=== PATIENT | male | born 1945 | race Caucasian/White ===

== ENCOUNTER → 2020-09-26 18:46 | Outpatient (ROUT) | payer OTHER, SELFPAY ==
[2020-09-26 19:32] LABS: Add Manual Diff / Slide Review NO; Basophils Absolute Auto 0 /uL (0-100); Basophils Percent Auto 0.7 % (0-2); Eosinophils Absolute Auto 100 /uL (0-450); Eosinophils Percent Auto 1.9 % (2-4); Lymphocytes Absolute Auto 1300 /uL (1100-4500); Mean Corpuscular HGB Conc 33.3 % (30-36); Mean Corpuscular Volume 93.1 fL (80-100); Monocytes Absolute Auto 500 /uL (0-900); Monocytes Percent Auto 10.7 % (3-14); Neutrophils Absolute Auto 2700 /uL (1500-7000); Neutrophils Percent Auto 58.7 % (50-75); Platelet Count 185 X10^3/uL (150-400); Red Blood Cell Count 4.83 X10^6/uL (4.5-5.9); Red Cell Distribution Width 13.8 % (11.6-14.8); White Blood Cell Count 4.6 X10^3/uL (4.5-11.0)
[2020-09-26 19:39] LABS: Alanine Aminotransferase 18 IU/L (<50); Albumin 3.7 g/dL (3.5-5.0); Albumin Globulin Ratio 1.4 (1.0-2.8); Alkaline Phosphatase 66 U/L (38-126); Aspartate Aminotransferase 23 IU/L (17-59); BUN Creatinine Ratio 19.3 (6-22); Bilirubin Total 0.6 mg/dL (0.2-1.3); Blood Urea Nitrogen 16 mg/dL (9-20); Calcium 9.4 mg/dL (8.4-10.2); Carbon Dioxide 26 mmol/L (22-32); Chloride 107 mmol/L (98-107); Cholesterol 249 mg/dL (140-199); Estimated Glomerular Filt Rate > 60.0 mL/min (>60); Globulin 2.7 g/dL (1.7-4.1); Glucose 98 mg/dL (80-110); HDL Cholesterol 61 mg/dL (40-60); LDL Cholesterol Calculated 169 mg/dL (<100); Potassium 4.5 mmol/L (3.4-5.1); Sodium 138 mmol/L (137-145); Total Protein 6.4 g/dL (6.3-8.2); Triglycerides 95 mg/dL (35-150)
[2020-09-29 10:50] LABS: HEMOLYSIS < 15 (0-50); Prostate Specific Antigen Scrn 1.43 ng/mL (0.1-4.0)
== END ==
PROVIDERS: Visit Provider Internal Medicine
DX: Z00.01 Encounter for general adult medical examination with abnormal findings (principal); J30.2 Other seasonal allergic rhinitis; K63.5 Polyp of colon; Z12.5 Encounter for screening for malignant neoplasm of prostate
CPT/HCPCS: 80053; 80061; 85025; G0103

== ENCOUNTER → 2020-12-15 09:57 | Outpatient (CLI) | payer OTHER, SELFPAY ==
[2020-12-15 11:50] LABS: COVID19 -Nasal RAPID Negative (Negative)
== END ==
PROVIDERS: PCP Physician Assistant; Visit Provider Physician Assistant
DX: Z01.812 Encounter for preprocedural laboratory examination (principal); Z20.822 Contact with and (suspected) exposure to COVID-19
CPT/HCPCS: 87635

== ENCOUNTER 2020-12-17 08:27 | Day surgery (SDC) | payer OTHER, SELFPAY ==
[2020-12-17 08:46] VITALS: BP 136/83; PULSE 88; RESP 18; TEMP 36.8; O2SAT 100; BMI 25.0
[2020-12-17] MEDS: SODIUM CHLORIDE 0.9% 1,000 ML 84 ML IV (08:57)
--- NOTE | 2020-12-17 09:12 | PM.HP.1 ---
History of Present Illness History of Present Illness Date Patient Seen: 12/17/20 Chief complaint: SDC Narrative: History of colon polyps Patient History Medical History (Updated 12/17/20 @ 08:39 by Donald Wilson RN) Bilateral tinnitus Hearing loss Histoplasmosis Family & Social History Social History: household members spouse Tobacco & Substance use: Smoking Status Never smoker alcohol intake current alcohol intake frequency 0-2 drinks per day Substance Use Type does not use Meds Home Medications and Allergies Home Medications Medication Instructions Recorded Confirmed Type cetirizine 10 mg tablet (Zyrtec) 10 mg PO BEDTIME 12/17/20 12/17/20 History fluticasone propionate 50 2 spray INTRANASAL BEDTIME 12/17/20 12/17/20 History mcg/actuation nasal spray,suspension Allergies Allergy/AdvReac Type Severity Reaction Status Date / Time tree and shrub pollen Allergy Nasal Verified 12/17/20 08:42 Discharge weed pollen Allergy Nasal Verified 12/17/20 08:42 Discharge Exam Vital Signs (past 8 hours): - 12/17/20 08:46 Temperature 98.2 F Pulse Rate 88 Respiratory Rate 18 Blood Pressure 136/83 Pulse Oximetry 100 Oxygen Delivery Method Room Air Oxygen Flow Rate 0 Narrative Exam Narrative: Oropharynx free of lesions Chest clear to auscultation percussion Cardiac exam reveals no S3 or murmur Assessment & Plan Assessment & Plan narrative: History of colon polyps need for follow-up colonoscopy. Risks, benefits, alternatives have been explained.
--- NOTE | 2020-12-17 09:14 | PM.OP.ENDO ---
Operative Date/Time/Diagnoses Date of procedure: 12/17/20 Pre-op diagnosis: See indication and findings Procedure & Clinicians Study performed: Colonoscopy Indications: History of polyps Surgeon: Meliton Sidhu Procedure Notes Procedure in detail: After informed consent was obtained the patient was placed in the left lateral decubitus position. The video colonoscope was introduced the rectum slowly advanced to cecum. Preparation was good. On slow withdrawal mucosa was carefully examined. The scope was removed. The patient tolerated procedure however had a some bradycardia requiring a 0.5 mg of atropine. Blood loss none Complications none Sedation Total sedation time 31 minutes Versed 6 mg fentanyl 100 micro g IV titration Findings 1. Moderate sigmoid diverticulosis 2. 5 mm polyp in the sigmoid colon cold snared and removed completely 3. Otherwise negative colonoscopy to cecum. Patient should have follow-up colonoscopy and 5 years
[2020-12-17] MEDS: fentaNYL 250 MCG/5 ML INJ IV (09:52)
[2020-12-17] MEDS: MIDAZOLAM 5 MG/5 ML VIAL IV (10:05)
[2020-12-17] MEDS: ATROPINE 1 MG/10 ML SYRINGE 0.5 MG IV (10:07)
[2020-12-17 10:27] VITALS: BP 110/49; PULSE 74; RESP 14; TEMP 36.3; O2SAT 95
[2020-12-17 10:32] VITALS: BP 118/80; PULSE 74; RESP 16; O2SAT 95
[2020-12-17 10:36] VITALS: BP 115/80; PULSE 72; RESP 16; O2SAT 94
[2020-12-17 10:43] VITALS: BP 123/84; PULSE 68; RESP 16; TEMP 36.4; O2SAT 98
[2020-12-17 10:51] VITALS: BP 120/70; PULSE 68; RESP 16; TEMP 36.6; O2SAT 98
== END 2020-12-17 10:54 | disposition home or self-care (01) ==
LOC: ENDO 08:29
PROVIDERS: PCP Internal Medicine; Referring Provider Internal Medicine Gastroenterology; Visit Provider Internal Medicine Gastroenterology
PROC: 0DJD8ZZ Inspection of Lower Intestinal Tract, Via Natural or Artificial Opening Endoscopic (ICD-10-PCS; CPT 45378; principal; 2020-12-17 09:30)
DX: Z12.11 Encounter for screening for malignant neoplasm of colon (principal); Z86.010 Personal history of colon polyps; K57.30 Diverticulosis of large intestine without perforation or abscess without bleeding; R00.1 Bradycardia, unspecified; K63.5 Polyp of colon
CPT/HCPCS: 45385; J0461; J2250; J3010

== ENCOUNTER 2023-03-25 14:53 | Observation (INO) | payer OTHER, SELFPAY ==
[2023-03-25 15:36] VITALS: BP 183/99; PULSE 85; RESP 18; TEMP 36.7; O2SAT 98; BMI 25.0
--- NOTE | 2023-03-25 15:42 | DI.RAD.S_ITS ---
PROCEDURE: XR ACUTE ABDOMEN SERIES INDICATIONS: foreign object lost in rectum TECHNIQUE: One view chest and two views of the abdomen were acquired. COMPARISON: None. FINDINGS: Surgical changes and devices: None. Chest: Lungs are abnormal with multiple small rounded sharply demarcated presumed calcified granulomas. Heart size is normal. No pleural effusions. No pneumoperitoneum. Abdomen: Bowel gas pattern is normal. No suspicious calcifications. Visualized solid organ contours appear normal. Note is made to the right of midline just above the medial aspect of the superior obturator ring of a radiodensity that is somewhat angular, and measures approximately 1.8 x 1.3 cm, chronicity is uncertain, and by appearance it does not represent a definite intraluminal structure. Bones: No suspicious bony lesions. IMPRESSION: Radiodensity to the right of expected position of the rectum discussed above, measuring 1.8 x 1.3 cm, not clearly intraluminal. Old calcified small granulomas within the lung parenchyma extensively. Dictated by: Robert Bettencourt M.D. on 03/25/2023 at 16:25 Approved by: Robert Bettencourt M.D. on 03/25/2023 at 16:28
--- NOTE | 2023-03-25 16:50 | PM.CN ---
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 Amish was inserted yesterday he lost hold of it has diarrhea and inability to retrieve it. No prior abdominal surgery Meds Home Medications and Allergies Home Medications Medication Instructions Recorded Confirmed Type cetirizine 10 mg tablet (Zyrtec) 10 mg PO BEDTIME 12/17/20 12/17/20 History fluticasone propionate 50 2 spray intranasal BEDTIME 12/17/20 12/17/20 History mcg/actuation nasal spray,suspension Allergies Allergy/AdvReac Type Severity Reaction Status Date / Time tree and shrub pollen Allergy Nasal Verified 03/25/23 15:36 Discharge weed pollen Allergy Nasal Verified 03/25/23 15:36 Discharge Exam Vital Signs (past 8 hours): - 03/25/23 15:36 Temperature 98.0 F Pulse Rate 85 Respiratory Rate 18 Blood Pressure 183/99 H Pulse Oximetry 98 Oxygen Delivery Method Room Air Oxygen Delivery Method Room Air Narrative Exam Narrative: GENERAL: A well nourished, well developed adult, resting comfortably, in no acute distress. HEENT: Normocephalic, atraumatic. No scleral icterus CHEST: Rising symmetrically. No audible wheezes CARDIOVASCULAR: Warm and well perfused. Regular rate ABDOMEN: Soft, non-tender, non-distended Rectum digital exam foreign body is palpable at the tip of my finger but unable to grasp it. EXTREMITIES: Normal tone and without edema. NEUROLOGIC: Moving all extremities spontaneously. No gross motor deficits. [facility] Medical History Hearing loss Bilateral tinnitus Histoplasmosis Social History household members: spouse Tobacco & Substance Use Smoking Status: Never smoker alcohol intake: current Assessment & Plan Assessment and plan (1) Rectal foreign body: Qualifiers: Encounter type: initial encounter Qualified Code(s): T18.5XXA - Foreign body in anus and rectum, initial encounter Status: Acute Assessment & Plan narrative: 77-year-old man with a foreign body/sex toy retained in rectum. No peritonitis or leukocytosis. Abdominal x-ray reviewed demonstrates a rectal foreign body. Palpable at the tip of my finger but unable to grasp. Discussed my recommendation with him that we proceed to the endoscopy room for therapeutic colonoscopy with retrieval the foreign body. Overview of the procedure was discussed. Procedural risks including hemorrhage, inability to retrieve object and rectal injury were discussed. Questions have been answered he is in agreement with this plan.
--- NOTE | 2023-03-25 16:55 | ED_ITS ---
HPI - Abdominal Pain General Chief Complaint: Skin/Abscess/Foreign Body Stated Complaint: STATES HAS DIVERTICULITIS COMPLICATIONS Time Seen by Provider: 03/25/23 16:33 Source: patient Mode of arrival: Ambulatory History of Present Illness HPI narrative: Patient 77-year-old male without significant past medical history presenting today with rectal foreign body. He reports that he thought he was constipated just for 1 day. He did not take any ezwo-dpc-jqhuwip medications to help with his constipation. He used a lubricated 6 toys and now can not get it out. No nausea or vomiting. No fever Related Data Home Medications Medication Instructions Recorded Confirmed cetirizine 10 mg tablet (Zyrtec) 10 mg PO BEDTIME 12/17/20 12/17/20 fluticasone propionate 50 2 spray intranasal BEDTIME 12/17/20 12/17/20 mcg/actuation nasal spray,suspension Previous Rx's Medication Instructions Recorded docusate sodium 100 mg capsule 100 mg PO BID #30 caps 03/25/23 (Colace) Allergies Allergy/AdvReac Type Severity Reaction Status Date / Time tree and shrub pollen Allergy Nasal Verified 03/25/23 15:36 Discharge weed pollen Allergy Nasal Verified 03/25/23 15:36 Discharge Patient History Medical History Hearing loss Bilateral tinnitus Histoplasmosis Social History household members: spouse Smoking Status: Never smoker alcohol intake: current Smoking Status: Never smoker alcohol intake frequency: 0-2 drinks per day Substance Use Type: does not use Exam Initial Vital Signs Initial Vital Signs: Vital Signs Temperature 98.0 F 03/25/23 15:36 Pulse Rate 85 03/25/23 15:36 Respiratory Rate 18 03/25/23 15:36 Blood Pressure 183/99 H 03/25/23 15:36 Pulse Oximetry 98 03/25/23 15:36 Oxygen Delivery Method Room Air 03/25/23 15:36 GENERAL: Alert pleasant 77-year-old male and in no acute distress. HEENT: Head atraumatic,EOMI, pupils reactive, face symmetric, moist mucous membranes CARDIOVASCULAR: Regular rate and rhythm without murmurs, rubs or gallops. RESPIRATORY: Breath sounds equal bilaterally, no wheezes rales or rhonchi. ABDOMEN: Soft, nontender. Normoactive bowel sounds all 4 quadrants. No guarding or rebound. EXTREMITIES: Normal range of motion, no clubbing or edema. Neurovascularly intact NEUROLOGICAL: Alert and oriented x4.Normal gait and speech. SKIN: Warm, dry, no laceration, no petechiae, no rashes or lesions. Course Orders Ordered: ED Orders 03/25/23 15:42 XR acute abdomen series Stat 03/25/23 17:03 CBC Auto Diff [Complete Blood Count AUTO DIFF] Stat CMP [Comprehensive Metabolic Panel] Stat Discontinued Medications Lactated Ringer's (Lactated Ringers) 1,000 mls @ 42 mls/hr IV CONT YOKASTA Last Admin: 03/25/23 17:53 Dose: 42 mls/hr Documented By: CG Vital Signs Vital signs: Vital Signs - 8 hr 03/25/23 15:36 Temperature 98.0 F Pulse Rate 85 Respiratory Rate 18 Blood Pressure 183/99 H Pulse Oximetry 98 Oxygen Delivery Method Room Air MDM - Abdominal Pain Lab Data 03/25/23 17:03 03/25/23 17:03 Labs: Lab Results 03/25/23 Range/Units 17:03 WBC 6.1 (4.5-11.0) X10^3/uL RBC 4.80 (4.5-5.9) X10^6/uL Hgb 14.7 (13.5-17.5) g/dL Hct 44.1 (41-53) % MCV 92.0 (80-100) fL MCH 30.6 (26-34) PG MCHC 33.3 (30-36) % RDW 14.0 (11.6-14.8) % Plt Count 209 (150-400) X10^3/uL Neut % (Auto) 73.7 (50-75) % Lymph % (Auto) 17.2 L (25-40) % [place] % (Auto) 8.2 (3-14) % Eos % (Auto) 0.5 L (2-4) % Baso % (Auto) 0.4 (0-2) % Neut # (Auto) 4500 (6270-7413) /uL Lymph # (Auto) 1000 L (3681-5225) /uL [place] # (Auto) 500 (0-900) /uL Eos # (Auto) 0 (0-450) /uL Baso # (Auto) 0 (0-100) /uL Sodium 138 (137-145) mmol/L Potassium 4.1 (3.4-5.1) mmol/L Chloride 104 (98-107) mmol/L Carbon Dioxide 26 (22-32) mmol/L BUN 11 (9-20) mg/dL Creatinine 0.78 (0.66-1.25) mg/dL Estimated GFR > 60 (>60) mL/min BUN/Creatinine Ratio 14.1 (6-22) Glucose 105 (80-110) mg/dL Calcium 9.4 (8.4-10.2) mg/dL Total Bilirubin 0.4 (0.2-1.3) mg/dL AST 24 (17-59) IU/L ALT 20 (<50) IU/L Alkaline Phosphatase 65 (38-126) U/L Total Protein 7.4 (6.3-8.2) g/dL Albumin 4.5 (3.5-5.0) g/dL Globulin 2.9 (1.7-4.1) g/dL Albumin/Globulin Ratio 1.6 (1.0-2.8) Imaging Data Abdominal x-ray: Radiologist's Impression: PROCEDURE: XR ACUTE ABDOMEN SERIES INDICATIONS: foreign object lost in rectum TECHNIQUE: One view chest and two views of the abdomen were acquired. COMPARISON: None. FINDINGS: Surgical changes and devices: None. Chest: Lungs are abnormal with multiple small rounded sharply demarcated presumed calcified granulomas. Heart size is normal. No pleural effusions. No pneumoperitoneum. Abdomen: Bowel gas pattern is normal. No suspicious calcifications. Visualized solid organ contours appear normal. Note is made to the right of midline just above the medial aspect of the superior obturator ring of a radiodensity that is somewhat angular, and measures approximately 1.8 x 1.3 cm, chronicity is uncertain, and by appearance it does not represent a definite intraluminal structure. Bones: No suspicious bony lesions. IMPRESSION: Radiodensity to the right of expected position of the rectum discussed above, measuring 1.8 x 1.3 cm, not clearly intraluminal. Old calcified small granulomas within the lung parenchyma extensively. Dictated by: Robert Bettencourt M.D. on 03/25/2023 at 16:25 Approved by: Robert Bettencourt M.D. on 03/25/2023 at 1 MDM Narrative Medical decision making narrative: Patient found have to foreign body on x-ray. Abdomen is soft. Dr. Bledsoe in ED at bedside unable to manually remove object in ED. Patient will go to OR. I did discuss with Dr. Bledsoe CT and results after foreign object was not found with colonoscopy. Ultimately no foreign body was found on CT or colonoscopy. Patient discharged from PACU Discharge Plan Departure Patient Disposition: Admitted As Inpatient Admit Date/Time: 03/25/23 17:36 Admit Provider: Tor Bledsoe
[2023-03-25 17:15] LABS: Add Manual Diff / Slide Review NO; Basophils Absolute Auto 0 /uL (0-100); Basophils Percent Auto 0.4 % (0-2); Eosinophils Absolute Auto 0 /uL (0-450); Eosinophils Percent Auto 0.5 % (2-4); Hematocrit 44.1 % (41-53); Hemoglobin 14.7 g/dL (13.5-17.5); Lymphocytes Absolute Auto 1000 /uL (1100-4500); Lymphocytes Percent Auto 17.2 % (25-40); Mean Corpuscular HGB Conc 33.3 % (30-36); Mean Corpuscular Hemoglobin 30.6 PG (26-34); Monocytes Absolute Auto 500 /uL (0-900); Monocytes Percent Auto 8.2 % (3-14); Neutrophils Absolute Auto 4500 /uL (1500-7000); Neutrophils Percent Auto 73.7 % (50-75); Platelet Count 209 X10^3/uL (150-400); White Blood Cell Count 6.1 X10^3/uL (4.5-11.0)
[2023-03-25 17:31] LABS: Alanine Aminotransferase 20 IU/L (<50); Albumin 4.5 g/dL (3.5-5.0); Albumin Globulin Ratio 1.6 (1.0-2.8); Alkaline Phosphatase 65 U/L (38-126); Aspartate Aminotransferase 24 IU/L (17-59); BUN Creatinine Ratio 14.1 (6-22); Bilirubin Total 0.4 mg/dL (0.2-1.3); Blood Urea Nitrogen 11 mg/dL (9-20); Calcium 9.4 mg/dL (8.4-10.2); Carbon Dioxide 26 mmol/L (22-32); Chloride 104 mmol/L (98-107); Estimated Glomerular Filt Rate > 60 mL/min (>60); Globulin 2.9 g/dL (1.7-4.1); Glucose 105 mg/dL (80-110); HEMOLYSIS < 15 (0-50); Potassium 4.1 mmol/L (3.4-5.1); Sodium 138 mmol/L (137-145); Total Protein 7.4 g/dL (6.3-8.2)
[2023-03-25 17:50] VITALS: BP 149/81; PULSE 73; RESP 20; TEMP 37.2; O2SAT 99; BMI 25.0
[2023-03-25] MEDS: LACTATED RINGERS 1,000 ML 42 ML IV (17:53)
--- NOTE | 2023-03-25 18:29 | DI.CT.S_ITS ---
PROCEDURE: CT ABDOMEN PELVIS W CON INDICATIONS: R/O rectal foreign body TECHNIQUE: After the administration of oral and IV contrast, axial sections were acquired from the lung bases to the pubic symphysis. Coronal and sagittal reformats were performed. For radiation dose reduction, the following was used: automated exposure control, adjustment of mA and/or kV according to patient size. COMPARISON: None. FINDINGS: Image quality: Excellent. Lung bases: Innumerable small round pulmonary parenchymal calcifications bilaterally. Right infrahilar calcification. Heart: No significant findings. ABDOMEN: Liver: No masses Gallbladder: Normal wall thickness. Biliary ducts: Nondilated. Pancreas: Normal. Spleen: Normal size. Adrenal Glands: No nodules. Kidneys and Ureters: Normal enhancement. No hydronephrosis or hydroureter. No calcifications. Stomach and Bowel: No rectal foreign body visible. No evidence of extraluminal gas. Occasional sigmoid diverticula. Colon is otherwise decompressed. Normal appendix. Normal small bowel loops and stomach. Peritoneum: No abnormal intraperitoneal fluid. No free air. Ventral Wall: No hernia. Abdominal Nodes: No retroperitoneal or mesenteric adenopathy by size criteria. Vessels: Mild abdominal aortic atherosclerotic calcification. PELVIS: Pelvic Organs: Mildly enlarged prostate gland with a few calcifications present. There are several vascular calcifications. Bladder: Unremarkable. Pelvic Nodes: No enlarged lymph nodes. Miscellaneous: No inguinal hernias are seen. Bones: Degenerative disc and endplate change in the lumbar spine causing mild scoliosis. IMPRESSION: 1. No CT evidence of rectal or intrapelvic foreign body. 2. Findings discussed with Dr. Sidhu in the emergency room at 17:05 hours. Dictated by: Deedee Raya M.D. on 03/25/2023 at 19:01 Approved by: Deedee Raya M.D. on 03/25/2023 at 19:08
[2023-03-25 18:37] VITALS: BP 120/66; PULSE 68; RESP 16; O2SAT 98
--- NOTE | 2023-03-25 18:41 | PM.OP.COLON ---
Operative Date/Time/Diagnoses Date of procedure: 03/25/23 Time of procedure: 18:41 Pre-op diagnosis: Rectal foreign body Post-op diagnosis: same Procedure & Clinicians Study performed: Sigmoidoscopy Same procedure as scheduled: Yes Indications: 77-year-old man with retained sex toy in rectum here for endoscopic removal Surgeon: Tor Bledsoe Procedure Notes Procedure in detail: Anesthesia was induced. Time out performed. Colonoscopy was inserted into the rectum and advanced forward. There was firm stool in the rectum but no foreign body present up to 30 cm from the verge. Following this negative sigmoidoscopy he was taken for CT A/P which on my read shows no evidence of rectal foreign body. Specimen(s): none sent Impression: No evidence of rectal foreign body Post-procedure Plan for aftercare: Consider an alternative method for treatment of constipation
[2023-03-25 18:52] VITALS: BP 143/73; PULSE 65; RESP 12; O2SAT 97
--- NOTE | 2023-03-25 18:52 | SUR.PHASEI ---
1820: to CT scan via stretcher with PACU nurse for CT scan of abdomen since no object was found during colonoscopy.
== END 2023-03-25 19:06 | disposition home or self-care (01) ==
LOC: ED 17:19 → AC 17:36
PROVIDERS: Admitting Provider Surgery; Emergency Provider Emergency Medicine; PCP Internal Medicine; Visit Provider Surgery
PROC: (CPT 45990; principal; 2023-03-25 17:45)
DX: K59.00 Constipation, unspecified (principal)
CPT/HCPCS: 45330; 36415; 74022; 74177; 80053; 85025; 99283; 99284; G0378; J2704

== ENCOUNTER → 2024-12-05 08:15 | Outpatient (CLI) | payer OTHER, SELFPAY ==
--- NOTE | 2024-12-05 08:18 | DI.MRI.S_ITS ---
PROCEDURE: MR ANKLE RT WO/W CON INDICATIONS: Ganglion TECHNIQUE: Noncontrast sagittal T1 spin echo and T2 fast spin echo with fat saturation, axial proton density fast spin echo and T2 fast spin echo with fat saturation, axial T1 spin echo with fat saturation, coronal T1 spin echo and T2 fast spin echo with fat saturation through the ankle/hindfoot. Post-contrast axial, coronal, and sagittal T1 spin echo with fat saturation through the ankle/hindfoot. COMPARISON: None. FINDINGS: Image quality: Excellent. Bones and joints: No suspicious osseous enhancement. Somu-ba-zfzamtwk midfoot and hindfoot joint osteoarthritis. No bone marrow contusions or fractures. No hindfoot coalitions. No osteochondral injuries of the talar dome. No pathologic joint effusions. Medial structures: The posterior tibialis tendon is mildly thickened at the level of distal talus and talonavicular joint. The flexor digitorum longus, and flexor hallucis longus tendons are intact. The posterior tibial neurovascular bundle appears normal within the tarsal tunnel, without extrinsic mass effect. The deltoid ligament and spring ligament are intact. Lateral structures: There is a lobulated fairly homogeneously T2 hyperintense and T1 hypointense signal structure involving anterolateral aspect of midfoot subcutaneous soft tissue at the level of 3rd TMT joint and measures up to 2.1 x 2.2 x 1 cm in size series 5, image 27 and series 9, image 3. After IV contrast infusion, no enhancement is noted within this structure. The anterior talofibular, calcaneofibular, and posterior talofibular ligaments appear intact. More superiorly, the anterior and posterior tibiofibular ligaments appear intact, as is the intermalleolar ligament. The tibiofibular syndesmosis is normal in width at 2 mm or less. The peroneus longus and brevis tendons demonstrate normal location and morphology. The sinus tarsi demonstrates normal fatty signal, without edema, fibrosis, or cyst formation. Anterior structures: The tibialis anterior, extensor hallucis longus, and extensor digitorum longus tendons appear intact. The dorsal talonavicular ligament appears intact. Posterior and plantar structures: Achilles tendon is intact. Medial and lateral bands of the plantar fascia are of normal thickness. No abductor digiti quinti muscle atrophy to suggest Harp neuropathy. IMPRESSION: 1. Finding likely represent a 2.1 x 1 x 2.2 cm lobulated ganglion cyst in subcutaneous soft tissue over anterolateral aspect of midfoot soft tissue at the level of 3rd TMT joint. No enhancing soft tissue mass is seen. No other cystic structures are noted. 2. Txtd-re-oiwhergm midfoot and hindfoot joint osteoarthritis. No fracture or dislocation. No osteochondral injuries of talar dome. 3. Mild distal posterior tibialis tendinosis. Rest of the ankle tendons and ligaments are intact. Dictated by: Raulito Diaz M.D. on 12/05/2024 at 9:04 Approved by: Raulito Diaz M.D. on 12/05/2024 at 9:23
== END ==
PROVIDERS: PCP Internal Medicine; Referring Provider Podiatrist; Visit Provider Podiatrist
DX: M67.471 Ganglion, right ankle and foot (principal); M19.071 Primary osteoarthritis, right ankle and foot; M67.971 Unspecified disorder of synovium and tendon, right ankle and foot
CPT/HCPCS: 73723; A9579